=== PATIENT | female | born 2000 | race Two or more races ===

== ENCOUNTER 2021-10-02 00:31 | Emergency (ER) | payer OTHER ==
[~2021-10-02] VITALS: Ht 162.6 cm; Wt 45.4 kg
[2021-10-02] MEDS ORDERED: IBUPROFEN 400 MG TABLET PO ONE (01:00)
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
[2021-10-02] MEDS ORDERED: IBUPROFEN 400 MG TABLET ONE (01:13)
--- NOTE | 2021-10-02 01:20 | NUR ---
XRAY AT BEDSIDE
--- NOTE | 2021-10-02 02:44 | NUR ---
Patient discharged to home in stable condition. Written and verbal after care instructions given. Patient verbalizes understanding of instruction.
[2021-10-02 02:45] VITALS: BP 139/80
== END 2021-10-02 02:45 | disposition home or self-care (01) ==
LOC: ER 00:39
DX: M79.18 Myalgia, other site (principal); M54.2 Cervicalgia; M25.512 Pain in left shoulder; M54.6 Pain in thoracic spine; V49.59XA Passenger injured in collision with other motor vehicles in traffic accident, initial encounter; Y93.89 Activity, other specified; Y92.413 State road as the place of occurrence of the external cause; Y99.8 Other external cause status
CPT/HCPCS: 72074-TC; 73030-TC